=== PATIENT | female | born 1955 | race Caucasian/White ===

== ENCOUNTER 2025-01-02 15:22 | Emergency (ER) | payer OTHER ==
[~2025-01-02] VITALS: Ht 154.9 cm; Wt 63.0 kg
[2025-01-02] MEDS ORDERED: IBUPROFEN 600 MG TABLET ONE (16:18)
[2025-01-02] MEDS ORDERED: ONDANSETRON 4 MG TAB.RAPDIS ONE (16:18)
[2025-01-02] MEDS: ONDANSETRON 4 MG TAB.RAPDIS SL ONE (16:20)
[2025-01-02] MEDS: IBUPROFEN 600 MG TABLET PO ONE (16:21)
[2025-01-02] MEDS ORDERED: LIDO30AD10 TP (16:48)
[2025-01-02] MEDS ORDERED: IBUP-1957 PO (16:48)
[2025-01-02] MEDS ORDERED: ONDA4TAB11 PO (16:49)
[2025-01-02 17:16] VITALS: BP 134/76; TEMP 98.3; O2SAT 99
== END 2025-01-02 17:17 | disposition home or self-care (01) ==
LOC: ER 15:26
DX: R11.0 Nausea (principal); E11.9 Type 2 diabetes mellitus without complications; F07.81 Postconcussional syndrome; I10 Essential (primary) hypertension; S13.4XXA Sprain of ligaments of cervical spine, initial encounter; Z79.1 Long term (current) use of non-steroidal anti-inflammatories (NSAID); V43.62XA Car passenger injured in collision with other type car in traffic accident, initial encounter; Y93.89 Activity, other specified; Y92.488 Other paved roadways as the place of occurrence of the external cause; Y99.8 Other external cause status
CPT/HCPCS: 99284; 72125; 70450; Q0162